=== PATIENT | female | born 1955 | race Caucasian/White ===

== ENCOUNTER 2016-08-18 07:44 | Inpatient (IN) | payer MEDICAID ==
[~2016-08-18] VITALS: Ht 154.9 cm; Wt 57.4 kg
[~2016-08-18 07:44] MED LIST: AMI200T PO; ASPI81TA27 PO; ATOR20TA50 PO; CHOL100039 PO; CITA-77 PO; DOCU100C8 PO; FER325T PO; FURO40TA4 PO; LEVO88TA4 PO; MET25T PO; POTA20TA53 PO; TRAZ100T2 PO
[2016-08-18 08:26] LABS: Basophils # (auto) 0 uL; Basophils % (auto) 0.1 % (0.0-2.0); CONDITION Y; Eosinophils # (auto) 0 uL; Eosinophils % (auto) 0.3 % (0.0-7.0); Hematocrit 40.2 % (36.0-46.0); Hemoglobin 13.7 g/dL (12.2-16.2); Lymphocytes # (auto) 1.4 uL; Lymphocytes % (auto) 16.4 % (10.0-50.0); Mean Corpuscular Hemoglobin 30.8 pg (28.0-32.0); Mean Corpuscular Hgb Conc. 34.1 g/dL (32.0-36.0); Mean Corpuscular Volume 90.1 fL (80.0-100.0); Mean Platelet Volume 5.8 fL (7.4-10.4); Monocytes # (auto) 0.5 uL; Neutrophils # (auto) 6.6 uL; Neutrophils % (auto) 77.2 % (37.0-80.0); Platelet Count (auto) 369 10^3/uL (140-450); Red Cell Distribution Width 14.8 % (11.6-16.0); White Blood Cell 8.6 10^3/uL (4.4-10.8)
[2016-08-18 08:40] LABS: Urine Bilirubin Negative (Negative); Urine Color Yellow (Yellow); Urine Glucose Normal (Normal); Urine Hyaline Cast MANY /lpf (0 - 2); Urine Mucus FEW (None Seen); Urine Nitrite Negative (Negative); Urine RBC 3 /hpf (0 - 4); Urine Squamous Epithelial Cell FEW /hpf (<5); Urine Urobilinogen Normal (Negative); Urine pH 5.5 (5.0-8.0)
[2016-08-18 08:43] LABS: Urine Blood 1+ /uL (Negative); Urine Ketone 1+ (Negative)
[2016-08-18 08:48] LABS: Albumin 4.4 g/dL (3.4-5.0); Anion Gap 10 (5-15); Aspartate Aminotransferase 22 U/L (15-37); Blood Urea Nitrogen 17 mg/dL (7-18); Carbon Dioxide 25 mmol/L (21-32); Chloride 93 mmol/L (98-107); GFR African American 68 mL/min; GFR Non-African American 56 mL/min; Glucose 96 mg/dL (74-106); Magnesium 2.1 mg/dL (1.6-2.6); Sodium 128 mmol/L (136-145)
[2016-08-18 08:53] LABS: Alkaline Phosphatase 56 U/L (45-117); Bilirubin, Total 1.7 mg/dL (0.2-1.0)
[2016-08-18] MEDS ORDERED: MULTCAP45 PO (09:44)
[2016-08-18] MEDS ORDERED: MORPHINE SULFATE 4 MG/ML SYRG IV ONE (10:00)
[2016-08-18] MEDS ORDERED: ONDANSETRON HCL 4 MG/2 ML VIAL IV ONE (10:00)
[2016-08-18] MEDS ORDERED: ACETAMINOPHEN 500 MG TAB PO PRN (10:15)
[2016-08-18] MEDS ORDERED: HYDROcodone-ACET 5/325MG TAB PO PRN (10:15)
[2016-08-18] MEDS ORDERED: NITROGLYCERIN 0.4 MG SL TAB SL PRN (10:15)
[2016-08-18] MEDS ORDERED: LORazepam 0.5 MG TAB PO PRN (10:15)
[2016-08-18] MEDS ORDERED: MORPHINE SULF INJ 2 MG/ML SYRINGE 1ML IV PRN (10:15)
[2016-08-18 10:32] LABS: B-Type Natriuretic Peptide 163.94 pg/mL (0-100)
[2016-08-18] MEDS ORDERED: AMIODARONE HCL 200 MG TAB PO ONE (10:45)
[2016-08-18] MEDS ORDERED: METOPROLOL TARTRATE 25 MG TAB PO ONE (10:45)
[2016-08-18] MEDS ORDERED: FUROSEMIDE 40 MG TAB PO ONE (10:45)
[2016-08-18] MEDS ORDERED: ASPirin-EC 81 mg tab PO ONE (10:45)
[2016-08-18] MEDS: PANTOPRAZOLE 40 MG TAB PO SCH (10:51)
[2016-08-18 11:19] LABS: Cholesterol 186 mg/dL (< 200); HDL Cholesterol 69 mg/dL (40-59); LDL Cholesterol 99 mg/dL (< 100); Triglycerides 81 mg/dL (< 150)
[2016-08-18 11:20] LABS: INR 1.15 (0.9-1.15); Partial Thromboplastin Time 33.2 sec (22.64-33.71)
[2016-08-18 11:39] LABS: Prothrombin Time 12.5 sec (9.37-12.3)
[2016-08-18] MEDS: MORPHINE SULF INJ 2 MG/ML SYRINGE 1ML IV PRN ×2 (15:17→18:48)
[2016-08-18] MEDS ORDERED: WARFARIN SODIUM 2 MG TAB PO ONE (17:00)
[2016-08-18] MEDS: ONDANSETRON HCL 4 MG/2 ML VIAL IV PRN (18:48)
[2016-08-18 20:33] VITALS: BP 141/85
[2016-08-18] MEDS ORDERED: TRAZ100T2 PO (21:00)
[2016-08-18] MEDS: ATORVASTATIN 20 MG TAB PO SCH (21:33)
[2016-08-18] MEDS: TEMAZEPAM 15 MG CAP PO PRN (21:34)
[2016-08-18] MEDS: METOPROLOL TARTRATE 25 MG TAB PO SCH (21:34)
[2016-08-18 22:00] VITALS: BP 141/85
[2016-08-19] MEDS: MORPHINE SULF INJ 2 MG/ML SYRINGE 1ML IV PRN ×3 (04:44→20:06)
[2016-08-19] MEDS: ONDANSETRON HCL 4 MG/2 ML VIAL IV PRN ×4 (04:44→20:06)
[2016-08-19 05:00] VITALS: BP 127/81
[2016-08-19 05:44] LABS: Basophils # (auto) 0 uL; Basophils % (auto) 0.3 % (0.0-2.0); CONDITION Y; Eosinophils # (auto) 0.1 uL; Eosinophils % (auto) 1.7 % (0.0-7.0); Hematocrit 38.5 % (36.0-46.0); Hemoglobin 13.2 g/dL (12.2-16.2); Lymphocytes # (auto) 1.9 uL; Mean Corpuscular Hemoglobin 30.7 pg (28.0-32.0); Mean Corpuscular Hgb Conc. 34.4 g/dL (32.0-36.0); Mean Corpuscular Volume 89.1 fL (80.0-100.0); Mean Platelet Volume 6.4 fL (7.4-10.4); Monocytes # (auto) 0.7 uL; Neutrophils # (auto) 4.7 uL; Platelet Count (auto) 317 10^3/uL (140-450); Red Cell Distribution Width 14.2 % (11.6-16.0); White Blood Cell 7.5 10^3/uL (4.4-10.8)
[2016-08-19 05:55] LABS: INR 1.51 (0.9-1.15); Partial Thromboplastin Time 35.6 sec (22.64-33.71)
[2016-08-19 05:56] LABS: Prothrombin Time 16.5 sec (9.37-12.3)
[2016-08-19] MEDS: LEVOTHYROXINE SODIUM 88 MCG TAB PO SCH (06:04)
[2016-08-19] MEDS: CITALOPRAM HYDROBR 20 MG TAB PO SCH (06:04)
[2016-08-19 06:24] LABS: Albumin 4.1 g/dL (3.4-5.0); BUN/Creatinine Ratio 16.8; Bilirubin, Total 1.5 mg/dL (0.2-1.0); Calcium 8.9 mg/dL (8.5-10.1); Potassium 3.7 mmol/L (3.5-5.1); Total Protein 7.6 g/dL (6.4-8.2)
[2016-08-19 08:00] VITALS: BP 103/62
[2016-08-19] MEDS: POTASSIUM CHL 20 Meq TABLET PO SCH (08:59)
[2016-08-19] MEDS: CHOLECALCIFEROL (VITD3) 1,000 UNIT TAB PO SCH (08:59)
[2016-08-19] MEDS: METOPROLOL TARTRATE 25 MG TAB PO SCH ×2 (09:00→21:58)
[2016-08-19] MEDS: ASPirin-EC 81 mg tab PO SCH (09:00)
[2016-08-19] MEDS: PANTOPRAZOLE 40 MG TAB PO SCH (09:01)
[2016-08-19] MEDS: FUROSEMIDE 40 MG TAB PO SCH (09:01)
[2016-08-19] MEDS: AMIODARONE HCL 200 MG TAB PO SCH (09:01)
[2016-08-19 09:58] VITALS: BP 136/83
[2016-08-19] MEDS ORDERED: FUROSEMIDE 40 MG TAB PO SCH (10:00)
[2016-08-19] MEDS ORDERED: PANTOPRAZOLE SODIUM 40 MG/10 ML VIAL IV SCH (10:00)
[2016-08-19 14:34] VITALS: BP 106/73
[2016-08-19] MEDS ORDERED: WARFARIN SODIUM 5 MG TAB PO ONE (17:00)
[2016-08-19 17:24] VITALS: BP 133/85
[2016-08-19] MEDS: ATORVASTATIN 20 MG TAB PO SCH (21:57)
[2016-08-19] MEDS: TEMAZEPAM 15 MG CAP PO PRN (21:58)
[2016-08-19 22:00] VITALS: BP 147/90
[2016-08-20 05:22] VITALS: BP 104/70
[2016-08-20 05:29] LABS: Basophils # (auto) 0 uL; Basophils % (auto) 0.5 % (0.0-2.0); CONDITION Y; Eosinophils # (auto) 0.2 uL; Eosinophils % (auto) 2.9 % (0.0-7.0); Hemoglobin 13.4 g/dL (12.2-16.2); Lymphocytes # (auto) 2.4 uL; Lymphocytes % (auto) 33.5 % (10.0-50.0); Mean Corpuscular Hemoglobin 30.8 pg (28.0-32.0); Mean Corpuscular Hgb Conc. 34.3 g/dL (32.0-36.0); Mean Corpuscular Volume 89.9 fL (80.0-100.0); Mean Platelet Volume 6.3 fL (7.4-10.4); Monocytes # (auto) 0.7 uL; Monocytes % (auto) 9.7 % (0.0-12.0); Neutrophils # (auto) 3.8 uL; Neutrophils % (auto) 53.4 % (37.0-80.0); Platelet Count (auto) 307 10^3/uL (140-450); Red Cell Distribution Width 14.3 % (11.6-16.0); White Blood Cell 7.1 10^3/uL (4.4-10.8)
[2016-08-20 05:39] LABS: INR 2.05 (0.9-1.15); Partial Thromboplastin Time 39.1 sec (22.64-33.71)
[2016-08-20 05:53] LABS: Prothrombin Time 22.5 sec (9.37-12.3)
[2016-08-20 05:57] LABS: Albumin 3.9 g/dL (3.4-5.0); BUN/Creatinine Ratio 14.3; Calcium 8.7 mg/dL (8.5-10.1); Potassium 3.7 mmol/L (3.5-5.1); Total Protein 7.4 g/dL (6.4-8.2)
[2016-08-20] MEDS: LEVOTHYROXINE SODIUM 88 MCG TAB PO SCH (06:03)
[2016-08-20] MEDS: CITALOPRAM HYDROBR 20 MG TAB PO SCH (06:03)
[2016-08-20] MEDS: MORPHINE SULF INJ 2 MG/ML SYRINGE 1ML IV PRN ×4 (06:09→18:29)
[2016-08-20] MEDS: ONDANSETRON HCL 4 MG/2 ML VIAL IV PRN ×4 (06:10→18:28)
[2016-08-20 08:00] VITALS: BP 115/70
[2016-08-20 08:21] VITALS: BP 115/70
[2016-08-20] MEDS: ASPirin-EC 81 mg tab PO SCH (10:00)
[2016-08-20] MEDS: FUROSEMIDE 40 MG TAB PO SCH (10:22)
[2016-08-20] MEDS: PANTOPRAZOLE 40 MG TAB PO SCH (10:22)
[2016-08-20] MEDS: POTASSIUM CHL 20 Meq TABLET PO SCH (10:22)
[2016-08-20] MEDS: AMIODARONE HCL 200 MG TAB PO SCH (10:23)
[2016-08-20] MEDS: CHOLECALCIFEROL (VITD3) 1,000 UNIT TAB PO SCH (10:23)
[2016-08-20] MEDS: METOPROLOL TARTRATE 25 MG TAB PO SCH ×2 (10:25→21:39)
[2016-08-20 14:34] VITALS: BP 147/80
[2016-08-20] MEDS ORDERED: WARFARIN SODIUM 2.5 MG TAB PO ONE (17:00)
[2016-08-20] MEDS: DOCUSATE SOD 100 MG CAP PO SCH ×2 (17:24→21:39)
[2016-08-20 17:31] VITALS: BP 125/78
[2016-08-20] MEDS: ATORVASTATIN 20 MG TAB PO SCH (21:39)
[2016-08-20 22:19] VITALS: BP 156/90
[2016-08-21] MEDS: ONDANSETRON HCL 4 MG/2 ML VIAL IV PRN ×5 (00:51→20:31)
[2016-08-21] MEDS: MORPHINE SULF INJ 2 MG/ML SYRINGE 1ML IV PRN ×6 (00:51→20:31)
[2016-08-21] MEDS ORDERED: SODIUM CHL 3% 500 ML IV ONE (02:30)
[2016-08-21 05:20] VITALS: BP 147/77
[2016-08-21] MEDS: LEVOTHYROXINE SODIUM 88 MCG TAB PO SCH (06:01)
[2016-08-21] MEDS: CITALOPRAM HYDROBR 20 MG TAB PO SCH (06:01)
[2016-08-21 06:38] LABS: INR 2.07 (0.9-1.15); Partial Thromboplastin Time 40.9 sec (22.64-33.71)
[2016-08-21 06:51] LABS: Prothrombin Time 22.7 sec (9.37-12.3)
[2016-08-21 09:00] VITALS: BP 137/74
[2016-08-21 09:39] LABS: BUN/Creatinine Ratio 11.1; Calcium 8.6 mg/dL (8.5-10.1); Potassium 3.7 mmol/L (3.5-5.1)
[2016-08-21] MEDS: ASPirin-EC 81 mg tab PO SCH (10:00)
[2016-08-21] MEDS: DOCUSATE SOD 100 MG CAP PO SCH ×2 (10:02→21:39)
[2016-08-21] MEDS: CHOLECALCIFEROL (VITD3) 1,000 UNIT TAB PO SCH (10:03)
[2016-08-21] MEDS: PANTOPRAZOLE 40 MG TAB PO SCH (10:03)
[2016-08-21] MEDS: POTASSIUM CHL 20 Meq TABLET PO SCH (10:03)
[2016-08-21] MEDS: FUROSEMIDE 40 MG TAB PO SCH (10:04)
[2016-08-21] MEDS: METOPROLOL TARTRATE 25 MG TAB PO SCH (10:07)
[2016-08-21 12:07] VITALS: BP 140/93
[2016-08-21 16:48] VITALS: BP 139/75
[2016-08-21] MEDS ORDERED: WARFARIN SODIUM 2 MG TAB PO ONE (17:00)
[2016-08-21] MEDS: ATORVASTATIN 20 MG TAB PO SCH (21:39)
[2016-08-21] MEDS: SOTALOL HCL 80 MG TAB PO SCH (21:39)
[2016-08-21 23:47] VITALS: BP 134/76
[2016-08-22] MEDS: MORPHINE SULF INJ 2 MG/ML SYRINGE 1ML IV PRN ×6 (01:35→22:21)
[2016-08-22] MEDS: ONDANSETRON HCL 4 MG/2 ML VIAL IV PRN ×6 (01:35→22:23)
[2016-08-22 05:11] VITALS: BP 125/77
[2016-08-22 05:58] LABS: INR 1.89 (0.9-1.15); Partial Thromboplastin Time 41.5 sec (22.64-33.71)
[2016-08-22 05:59] LABS: Prothrombin Time 20.7 sec (9.37-12.3)
[2016-08-22] MEDS: CITALOPRAM HYDROBR 20 MG TAB PO SCH (06:05)
[2016-08-22] MEDS: LEVOTHYROXINE SODIUM 88 MCG TAB PO SCH (06:05)
[2016-08-22 06:06] LABS: BUN/Creatinine Ratio 10.6; Calcium 8.3 mg/dL (8.5-10.1); Potassium 4.5 mmol/L (3.5-5.1)
[2016-08-22 08:00] VITALS: BP 121/80
[2016-08-22 09:00] VITALS: BP 121/80
[2016-08-22] MEDS: POTASSIUM CHL 20 Meq TABLET PO SCH (09:53)
[2016-08-22] MEDS: PANTOPRAZOLE 40 MG TAB PO SCH (09:53)
[2016-08-22] MEDS: SOTALOL HCL 80 MG TAB PO SCH ×2 (09:53→22:00)
[2016-08-22] MEDS: DOCUSATE SOD 100 MG CAP PO SCH ×2 (09:53→22:25)
[2016-08-22] MEDS: CHOLECALCIFEROL (VITD3) 1,000 UNIT TAB PO SCH (09:54)
[2016-08-22] MEDS: ASPirin-EC 81 mg tab PO SCH (09:55)
[2016-08-22] MEDS: FUROSEMIDE 40 MG TAB PO SCH (09:59)
[2016-08-22] MEDS ORDERED: DRONEDARONE HCL 400 MG TAB PO SCH (10:00)
[2016-08-22 13:00] VITALS: BP 142/89
[2016-08-22] MEDS: DRONEDARONE HCL 400 MG TAB PO SCH (16:59)
[2016-08-22 17:00] VITALS: BP 122/78
[2016-08-22] MEDS ORDERED: WARFARIN SODIUM 5 MG TAB PO ONE (17:00)
[2016-08-22 21:30] VITALS: BP 96/63
[2016-08-22] MEDS: ATORVASTATIN 20 MG TAB PO SCH (22:25)
[2016-08-23] MEDS: ONDANSETRON HCL 4 MG/2 ML VIAL IV PRN ×3 (02:18→10:22)
[2016-08-23] MEDS: MORPHINE SULF INJ 2 MG/ML SYRINGE 1ML IV PRN ×3 (02:18→10:22)
[2016-08-23 05:00] VITALS: BP 104/60
[2016-08-23] MEDS: CITALOPRAM HYDROBR 20 MG TAB PO SCH (06:19)
[2016-08-23] MEDS: DRONEDARONE HCL 400 MG TAB PO SCH (06:19)
[2016-08-23] MEDS: LEVOTHYROXINE SODIUM 88 MCG TAB PO SCH (06:19)
[2016-08-23 06:38] LABS: INR 2.06 (0.9-1.15); Partial Thromboplastin Time 41.8 sec (22.64-33.71)
[2016-08-23 06:44] LABS: Prothrombin Time 22.6 sec (9.37-12.3)
[2016-08-23 09:00] VITALS: BP 113/72
[2016-08-23] MEDS: CHOLECALCIFEROL (VITD3) 1,000 UNIT TAB PO SCH (09:36)
[2016-08-23] MEDS: PANTOPRAZOLE 40 MG TAB PO SCH (09:37)
[2016-08-23] MEDS: SOTALOL HCL 80 MG TAB PO SCH (09:37)
[2016-08-23] MEDS: DOCUSATE SOD 100 MG CAP PO SCH (09:37)
[2016-08-23] MEDS: POTASSIUM CHL 20 Meq TABLET PO SCH (09:37)
[2016-08-23] MEDS: FUROSEMIDE 40 MG TAB PO SCH (09:37)
[2016-08-23] MEDS: ASPirin-EC 81 mg tab PO SCH (09:37)
[2016-08-23] MEDS ORDERED: FUROSEMIDE 20 MG TAB PO ONE (11:00)
[2016-08-23 11:06] VITALS: BP 113/72
[2016-08-23] MEDS ORDERED: WARFARIN SODIUM 5 MG TAB PO ONE (17:00)
[2016-08-24] MEDS ORDERED: FUROSEMIDE 20 MG TAB PO SCH (10:00)
== END 2016-08-23 11:52 | disposition home or self-care (01) | DRG 198 ==
LOC: ER 07:44 → TELE 07:45 → TELE-WESTW 20:30
PROVIDERS: ADMIT Nurse Practitioner Family; ATTEND Internal Medicine
DX: R07.9 Chest pain, unspecified (principal); I25.2 Old myocardial infarction; I38 Endocarditis, valve unspecified; I13.0 Hypertensive heart and chronic kidney disease with heart failure and stage 1 through stage 4 chronic kidney disease, or unspecified chronic kidney disease; I50.9 Heart failure, unspecified; E87.8 Other disorders of electrolyte and fluid balance, not elsewhere classified; I25.10 Atherosclerotic heart disease of native coronary artery without angina pectoris; E87.1 Hypo-osmolality and hyponatremia; I48.91 Unspecified atrial fibrillation; N18.9 Chronic kidney disease, unspecified; J44.9 Chronic obstructive pulmonary disease, unspecified; E03.9 Hypothyroidism, unspecified; E78.5 Hyperlipidemia, unspecified; F32.9 Major depressive disorder, single episode, unspecified; Z95.2 Presence of prosthetic heart valve; Z95.1 Presence of aortocoronary bypass graft; Z79.899 Other long term (current) drug therapy; Z82.49 Family history of ischemic heart disease and other diseases of the circulatory system; Z90.89 Acquired absence of other organs; Z90.710 Acquired absence of both cervix and uterus
CPT/HCPCS: 36415; 71020; 80048; 80053; 80061; 81001; 82550; 83735; 83880; 84443; 84484; 85025; 85379; 85610; 85652; 85730; 87081; 93005; 93306; 94761; 96374; 96375; J2405

== ENCOUNTER 2023-10-21 10:39 | Emergency (ER) | payer OTHER ==
[~2023-10-21] VITALS: Ht 162.6 cm; Wt 60.0 kg
[~2023-10-21 10:39] MED LIST changes: -AMI200T PO; -ASPI81TA27 PO; +DOCU-265 PO; -DOCU100C8 PO; +MULTCAP45 PO; +POTA-220 PO; -POTA20TA53 PO; +TRAZ-228 PO; -TRAZ100T2 PO
[2023-10-21 11:29] LABS: Basophils # (auto) 0 10 ^3/uL (0-0.2); Basophils % (auto) 0.5 % (0.0-2.0); Eosinophils # (auto) 0 10 ^3/uL (0-0.8); Eosinophils % (auto) 0.1 % (0.0-7.0); Hematocrit 38.7 % (36.0-46.0); Hemoglobin 13.4 g/dL (12.2-16.2); Lymphocytes # (auto) 1.3 10 ^3/uL (0.4-5.4); Lymphocytes % (auto) 16.5 % (10.0-50.0); Mean Corpuscular Hemoglobin 29.9 pg (28.0-32.0); Mean Corpuscular Hgb Conc. 34.6 g/dL (32.0-36.0); Mean Corpuscular Volume 86.3 fL (80.0-100.0); Monocytes # (auto) 0.3 10 ^3/uL (0-1.3); Monocytes % (auto) 3.1 % (0.0-12.0); Neutrophils # (auto) 6.5 10 ^3/uL (1.6-8.6); Neutrophils % (auto) 79.8 % (37.0-80.0); Nucleated Red Blood Cells % 0.1 %; Platelet Count (auto) 451 10^3/uL (140-450); Red Blood Cells 4.49 10^6/uL (4.0-5.20); Red Cell Distribution Width 13.8 % (11.8-14.3); White Blood Cell 8.2 10^3/uL (4.4-10.8)
[2023-10-21 11:46] LABS: Alanine Aminotransferase 11 U/L (7-40); Albumin 4.8 g/dL (3.2-4.8); Alkaline Phosphatase 61 U/L (46-116); Anion Gap 10 (5-15); Aspartate Aminotransferase 18 U/L (13-40); BUN/Creatinine Ratio 7.4 (10.0-20.0); Blood Urea Nitrogen 7 mg/dL (9-23); Calcium 10.4 mg/dL (8.7-10.4); Carbon Dioxide 24 mmol/L (20-30); Chloride 102 mmol/L (98-107); Glucose 126 mg/dL (74-106); Lipase 32 U/L (12-53); Potassium 3.7 mmol/L (3.5-5.1); Sodium 136 mmol/L (136-145)
[2023-10-21 11:47] LABS: Bilirubin, Total 0.5 mg/dL (0.2-1.0); Total Protein 8.1 g/dL (5.7-8.2)
[2023-10-21] MEDS: HYDROcodone-ACET 10/325MG TAB PO ONE (15:26)
[2023-10-21 15:31] VITALS: BP 163/80; PULSE 61; RESP 15; TEMP 98; O2SAT 99
== END 2023-10-21 19:10 | disposition home or self-care (01) ==
LOC: ER 10:39 → EDBD 10:39 → ER 15:05
DX: I10 Essential (primary) hypertension (principal); R10.11 Right upper quadrant pain; R10.12 Left upper quadrant pain; I25.2 Old myocardial infarction; E78.5 Hyperlipidemia, unspecified; F32.9 Major depressive disorder, single episode, unspecified; Z98.890 Other specified postprocedural states; Z79.899 Other long term (current) drug therapy
CPT/HCPCS: 36415; 74176; 80053; 83690; 84484; 85025; 93005